=== PATIENT | male | born 1985 | race Caucasian/White ===

== ENCOUNTER 2017-06-08 16:13 | Outpatient (CLI) | END 2017-06-08 16:14 | disposition home or self-care (01) | LOC: FCC-LAB 16:13 | PROVIDERS: ATTEND Family Medicine | DX: Z00.00 Encounter for general adult medical examination without abnormal findings (principal); Z13.220 Encounter for screening for lipoid disorders | CPT/HCPCS: 36415; 80053; 80061; 85025 ==

== ENCOUNTER 2018-03-21 15:09 | Outpatient (CLI) | payer OTHER | END 2018-03-21 15:10 | disposition home or self-care (01) | LOC: RHC-LAB 15:09 → FCC-LAB 15:10 | PROVIDERS: ATTEND Family Medicine | DX: R05 Cough (principal) | CPT/HCPCS: 87502 ==